=== PATIENT | male | born 1950 | race Two or more races ===

== ENCOUNTER 2020-01-29 12:26 | Outpatient (CLI) | payer OTHER | END 2020-01-29 12:37 | disposition home or self-care (01) | LOC: SONOGRAMA 12:26 | PROVIDERS: ATTEND Pathology Anatomic Pathology & Clinical Pathology | DX: D34 Benign neoplasm of thyroid gland (principal); E04.2 Nontoxic multinodular goiter; E07.89 Other specified disorders of thyroid; E04.1 Nontoxic single thyroid nodule ==